=== PATIENT | male | born 1945 | race Caucasian/White ===

== ENCOUNTER 2018-11-09 15:18 | Emergency (ER) | payer OTHER, BC ==
--- NOTE | 2018-11-09 15:26 | PDOC ---
Rapid Medical Evaluation Time Seen by Provider: 11/09/18 15:24 Medical Evaluation: 11/09/18 15:24 I have performed a brief in-person evaluation of this patient. The patient presents with a chief complaint of:L lower back s/p mechanical fall today. No head injury, hip or LE pain. Able to ambulate since fall. H/o Parkinson's, s/p L hip repair, b/l LKR, prostate ca c/w surgery. Not on blood thinners Pertinent physical exam findings:Stable, +ttp to L lower back I have ordered the following:XR The patient will proceed to the ED for further evaluation. 11/09/18 15:28 Discharge Disposition - Diagnosis Fall Qualifiers: Encounter type: initial encounter Qualified Code(s): W19.XXXA - Unspecified fall, initial encounter - Referrals - Patient Instructions - Post Discharge Activity
[2018-11-09 15:30] VITALS: BP 130/77; PULSE 77; TEMP 97.4; BMI 23.8
[2018-11-09] MEDS ORDERED: oxyCODONE HCL 5 MG TABLET PO ONE (16:54)
[2018-11-09] MEDS ORDERED: oxyCODONE HCL 5 MG TABLET ONE (17:10)
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
[2018-11-09 17:23] LABS: URINE APPEARANCE CLEAR; URINE BILIRUBIN NEGATIVE (<2.0 mg/dL); URINE COLOR DKYELLOW; URINE GLUCOSE (UA) NEGATIVE (NEGATIVE); URINE KETONE 2+ (NEGATIVE); URINE LEUK ESTERASE NEGATIVE (NEGATIVE); URINE NITRITE NEGATIVE (NEGATIVE); URINE PROTEIN 1+ (NEGATIVE)
[2018-11-09 17:29] LABS: EPI CELLS RARE /HPF (FEW); URINE MUCUS RARE
== END 2018-11-09 18:56 | disposition home or self-care (01) ==
LOC: JERFT 15:18
DX: S30.1XXA Contusion of abdominal wall, initial encounter (principal); V19.88XA Pedal cyclist (driver) (passenger) injured in other specified transport accidents, initial encounter; Y92.410 Unspecified street and highway as the place of occurrence of the external cause; Y93.89 Activity, other specified; Y99.8 Other external cause status
CPT/HCPCS: 71111-TC-FY; 72100-TC-FY; 76775-TC; 81003; 81015; 99281-25

== ENCOUNTER 2023-08-28 00:21 | Emergency (ER) | payer OTHER, BC ==
[2023-08-28 00:29] VITALS: RESP 18; BMI 23.2
[2023-08-28] MEDS ORDERED: diazePAM 5 MG TABLET PO ONE (00:48)
[2023-08-28] MEDS ORDERED: KETOROLAC TROMETHAMINE 60 MG/2 ML VIAL IM ONE (00:49)
[2023-08-28] MEDS ORDERED: KETOROLAC TROMETHAMINE 60 MG/2 ML VIAL ONE (01:07)
[2023-08-28] MEDS ORDERED: diazePAM 5 MG TABLET ONE (01:08)
[2023-08-28] MEDS ORDERED: oxyCODONE HCL 5 MG TABLET PO ONE (01:35)
[2023-08-28] MEDS ORDERED: oxyCODONE HCL 5 MG TABLET ONE (01:51)
[2023-08-28] MEDS ORDERED: FOLIC ACID INJECTION - 1 MG, THIAMINE HCL 100 MG, MULTIVIT INJECTION ADULT 10 ML in SOD... IVPB ONE (02:45)
[2023-08-28] MEDS ORDERED: LACTULOSE 20 GM/30 ML UDC (FOR ORAL USE ONLY) PO ONE (02:46)
[2023-08-28] MEDS ORDERED: ACETAMINOPHEN 1000 MG/100 ML BAG IVPB ONE (02:47)
[2023-08-28] MEDS ORDERED: ACETAMINOPHEN INJECTION 100 ML IVPB ONE (03:08)
[2023-08-28] MEDS ORDERED: LACTULOSE 20 GM/30 ML UDC (FOR ORAL USE ONLY) ONE (03:08)
[2023-08-28] MEDS ORDERED: KETOROLAC TROMETHAMINE 30 MG/1 ML VIAL IVPUSH ONE (03:45)
[2023-08-28] MEDS ORDERED: KETOROLAC TROMETHAMINE 30 MG/1 ML VIAL ONE (04:23)
[2023-08-28 06:20] VITALS: BP 160/92; PULSE 66; TEMP 98.9
== END 2023-08-28 06:21 | disposition home or self-care (01) ==
LOC: JER 00:21
PROC: 3E033GC Introduction of Other Therapeutic Substance into Peripheral Vein, Percutaneous Approach (ICD-10-PCS; principal; 2023-08-28)
PROC: 3E033GC Introduction of Other Therapeutic Substance into Peripheral Vein, Percutaneous Approach (ICD-10-PCS; 2023-08-28)
PROC: 3E033GC Introduction of Other Therapeutic Substance into Peripheral Vein, Percutaneous Approach (ICD-10-PCS; 2023-08-28)
PROC: 3E033GC Introduction of Other Therapeutic Substance into Peripheral Vein, Percutaneous Approach (ICD-10-PCS; 2023-08-28)
PROC: 3E033GC Introduction of Other Therapeutic Substance into Peripheral Vein, Percutaneous Approach (ICD-10-PCS; 2023-08-28)
PROC: 3E033GC Introduction of Other Therapeutic Substance into Peripheral Vein, Percutaneous Approach (ICD-10-PCS; 2023-08-28)
PROC: 3E033GC Introduction of Other Therapeutic Substance into Peripheral Vein, Percutaneous Approach (ICD-10-PCS; 2023-08-28)
PROC: 3E033GC Introduction of Other Therapeutic Substance into Peripheral Vein, Percutaneous Approach (ICD-10-PCS; 2023-08-28)
PROC: 3E033NZ Introduction of Analgesics, Hypnotics, Sedatives into Peripheral Vein, Percutaneous Approach (ICD-10-PCS; 2023-08-28)
PROC: 3E0233Z Introduction of Anti-inflammatory into Muscle, Percutaneous Approach (ICD-10-PCS; 2023-08-28)
PROC: 3E0333Z Introduction of Anti-inflammatory into Peripheral Vein, Percutaneous Approach (ICD-10-PCS; 2023-08-28)
DX: M54.42 Lumbago with sciatica, left side (principal); G89.29 Other chronic pain
CPT/HCPCS: 72100-TC-FY; 99284-25